=== PATIENT | female | born 1970 | race Caucasian/White ===

== ENCOUNTER 2021-10-09 20:14 | Emergency (ER) | payer OTHER ==
[~2021-10-09 20:14] MED LIST: ALLERGY10 MG PO; CELEXA20 MG PO; DICLOFENAC SODI75 MG PO; DUONEB 2.5-0.5M1 AMP NEB; LEVAQUIN750 MG PO; LIPITOR40 MG PO; NEURONTIN300 MG PO; PREDNISONE 10MG10 MG PO; PROMETHAZINE-D120 ML PO; PROTONIX 40MG T40 MG PO; SINGULAIR10 MG PO; SYMBICORT 1601 PUFFS INH; TUDORZA PRESS400 MCG INH; VENTOLIN (2.5 MG/3 M INH
[2021-10-09 21:12] LABS: EOSINOPHIL 3.7 % (0-5); HCT 42.5 % (37.0-47.0); HGB 14.4 g/dl (12.5-16.0); LYMPHOCYTE 44.7 % (15-48); MCH 30.4 pg (25.0-31.0); MCHC 33.9 g/dL (32.0-36.0); MCV 89.9 fL (78.0-100.0); MONOCYTE 6.4 % (0-12); MPV 9.5 fL (6.0-9.5); NEUTROPHIL 44.1 % (41-80); NRBC 0; PLT 274 K/uL (150-400); RBC 4.73 M/uL (4.20-5.40); RDW 12.3 % (11.5-14.0); WBC 6.7 K/uL (4.0-10.5)
[2021-10-09 21:15] LABS: BILIRUBIN NEGATIVE (NEGATIVE); BLOOD NEGATIVE Ery/uL (NEGATIVE); CLARITY CLOUDY (CLEAR); COLOR YELLOW (YELLOW); GLUCOSE (U) NORMAL (NORMAL); LEUKOCYTES NEGATIVE Leu/uL (NEGATIVE); NITRITE NEGATIVE (NEGATIVE); PROTEIN NEGATIVE (NEGATIVE); SPECIFIC GRAVITY 1.015 (1.001-1.030)
[2021-10-09 21:31] LABS: ALBUMIN 3.2 g/dL (3.4-5.0); BILIRUBIN - TOTAL 0.3 mg/dL (0.2-1.0); BUN/CREAT RATIO (CALC) 14.3 RATIO; CREATININE 0.63 mg/dL (0.51-0.95); POTASSIUM 3.9 mmol/L (3.5-5.1); TOTAL PROTEIN 7.2 g/dL (6.4-8.2)
[2021-10-09] MEDS ORDERED: IBUPROFEN800 MG PO (22:20)
== END 2021-10-09 22:44 | disposition home or self-care (01) ==
LOC: FER 20:14
PROVIDERS: Internal Medicine
DX: R10.32 Left lower quadrant pain (principal); I10 Essential (primary) hypertension; Z88.0 Allergy status to penicillin
CPT/HCPCS: 36415; 80053; 81003; 85025; Q9967